=== PATIENT | male | born 1955 | race Caucasian/White ===

== ENCOUNTER 2020-12-12 07:32 | Day surgery (SDC) | payer MEDICARE ==
[2020-12-11 11:48] LABS: ALANINE AMINOTRANSFERASE 82 U/L (12-78); ANION GAP 5 mmol/L (5-15); CALCIUM 9.1 mg/dL (8.5-10.1); CHLORIDE 106 mmol/L (98-107)
[2020-12-11 11:53] LABS: ALKALINE PHOSPHATASE 79 U/L (45-117); BILIRUBIN,TOTAL 0.8 mg/dL (0.2-1.0); CREATININE 0.95 mg/dL (0.7-1.3); TOTAL PROTEIN 7.4 g/dL (6.4-8.2)
[~2020-12-12] VITALS: Ht 193 cm; Wt 100.2 kg
[~2020-12-12 07:32] MED LIST: ATOR10TA9 PO; B12; BUPIVACAINE 0.25% ONE; BUPIVACAINE/PF 0.25% ONE; CETI-158 PO; CINNAMON; CURCUMIN; ECHINACEA; EPINEPHRINE 1 MG/ML, 1ML ONE; LEVO88TA4 PO; METF500T17 PO; ONE A DAY; TURMERIC; VITAMIN C
[2020-12-12 08:19] VITALS: BP 142/91
[2020-12-12] MEDS ORDERED: CHLORHEXIDINE 15 ML UDC ONE (08:20)
[2020-12-12] MEDS ORDERED: CHLORHEXIDINE 15 ML UDC PO ONE (08:30)
[2020-12-12] MEDS ORDERED: LACTATED RINGERS 1,000 ML IV SCH (08:30)
[2020-12-12] MEDS ORDERED: PROPOFOL 50 ML ONE (09:34)
[2020-12-12] MEDS ORDERED: MIDAZOLAM 1 MG/ML, 2ML ONE (09:34)
[2020-12-12] MEDS ORDERED: FENTANYL PF 250 MCG/5ML ONE (09:34)
[2020-12-12] MEDS ORDERED: OXYC1TAB14 PO (09:40)
[2020-12-12] MEDS ORDERED: ROCURONIUM 10 MG/ML,10ML ONE (09:49)
[2020-12-12] MEDS ORDERED: CEFAZOLIN 1,000 MG ONE (09:49)
[2020-12-12] MEDS ORDERED: ONDANSETRON 2MG/ML, 2ML ONE (09:59)
[2020-12-12] MEDS ORDERED: DEXAMETHASONE 4 MG/ML, 5ML ONE (10:00)
[2020-12-12] MEDS ORDERED: BUPIVACAINE/PF-EPI 0.25% 1:200K INFIL ONE (10:05)
[2020-12-12] MEDS ORDERED: SUCCINYLCHOLINE 20 MG/ML, 10ML ONE (10:29)
[2020-12-12] MEDS ORDERED: PROPOFOL 10 MG/ML, 20ML ONE (10:29)
[2020-12-12] MEDS ORDERED: HYDROmorphone 1 MG/ML, 1ML INJ IVPush PRN (10:30)
[2020-12-12] MEDS ORDERED: DIPHENHYDRAMINE 50 MG/ML, 1ML IVPush PRN (10:30)
[2020-12-12] MEDS ORDERED: PROMETHAZINE 25 MG/ML, 1ML IVPush PRN (10:30)
[2020-12-12] MEDS ORDERED: EPHEDRINE 50 MG/ML, 1ML IM PRN (10:30)
[2020-12-12] MEDS ORDERED: DIAZEPAM 5 MG/ML, 2ML IVPush PRN (10:30)
[2020-12-12] MEDS ORDERED: ACETAMINOPHEN 325 MG TABLET PO PRN (10:30)
[2020-12-12] MEDS ORDERED: LABETALOL 5MG/ML, 20ML IV PRN (10:30)
[2020-12-12] MEDS ORDERED: OXYcodone 5 MG/5 ML ORAL.SOL UDC PO PRN (10:30)
[2020-12-12] MEDS ORDERED: ONDANSETRON 2MG/ML, 2ML IVPush PRN (10:30)
[2020-12-12] MEDS ORDERED: MEPERIDINE/PF 25MG/0.5ML IVPush PRN (10:30)
[2020-12-12] MEDS ORDERED: FENTANYL PF 100 MCG/2ML IV PRN (10:30)
[2020-12-12] MEDS ORDERED: EPHEDRINE 50 MG/ML, 1ML IVPush PRN (10:30)
== END 2020-12-12 13:35 | disposition home or self-care (01) ==
LOC: OUT 07:32 → EDSEX 09:30 → OUT 13:35
PROVIDERS: ATTEND Surgery
DX: K40.90 Unilateral inguinal hernia, without obstruction or gangrene, not specified as recurrent (principal); D17.6 Benign lipomatous neoplasm of spermatic cord; F17.210 Nicotine dependence, cigarettes, uncomplicated; E11.9 Type 2 diabetes mellitus without complications; E78.00 Pure hypercholesterolemia, unspecified; Z98.890 Other specified postprocedural states; Z79.899 Other long term (current) drug therapy; Z88.1 Allergy status to other antibiotic agents; Z20.822 Contact with and (suspected) exposure to COVID-19; Z72.89 Other problems related to lifestyle
CPT/HCPCS: 36415; 49650; 80053; 82962; 93005; C1727; C1760; C1781; J0171; J0330; J0690; J1100; J2250; J2405; J2704; J3010; J7120; U0003; U0005